=== PATIENT | female | born 1995 | race Caucasian/White ===

== ENCOUNTER 2017-12-07 14:28 | Emergency (ER) | payer MEDICAID ==
[~2017-12-07] VITALS: Ht 149.9 cm; Wt 44.5 kg
[~2017-12-07 14:28] MED LIST: AMOXICILLIN 50500 MG PO; FERROUSAL325 MG PO; MOTRIN 600600 MG/TAB PO; PRENATAL1 TA1 PO; TYLENOL/CODEINE1 ML PO
[2017-12-07 14:29] VITALS: BP 111/68; TEMP 97.1
[2017-12-07 15:22] LABS: BASO # 0.1 (0.0-0.2); BASO % 0.4 % (0.0-2.0); EOS % 0.3 % (0-4.0); GRAN # 9.1 (1.4-6.5); GRAN % 81.8 % (42.2-75.2); HEMATOCRIT 51.5 % (37.0-47.0); LYMPH # 1.6 (1.2-3.4); LYMPH % 14.3 % (20.0-51.0); MEAN CELL VOLUME 85 fl (80.0-100.0); MEAN CORPUSCULAR HEMOGLOBIN 30 pg (27.0-31.0); MEAN CORPUSCULAR HGB CONC 35 g/dl (33.0-37.0); MEAN PLATELET VOLUME 8.5 fl (7.4-10.4); MONO # 0.3 (0.1-0.6); MONO % 2.8 % (1.7-9.3); PLATELET COUNT 398 K/mm3 (130-400); RED BLOOD COUNT 6.03 M/mm3 (4.10-5.30); REDCELL DISTRIBUTION WIDTH-CV 12.1 % (11.5-14.5)
[2017-12-07 15:23] LABS: HEMOGLOBIN 18.2 g/dl (12.5-16.0)
[2017-12-07 15:36] LABS: ALANINE AMINOTRANSFERASE 33 U/L (9-52); ALBUMIN 5.9 gm/dL (3.5-5.0); ALKALINE PHOSPHATASE 85 U/L (50-136); ANION GAP 27 mmol/L (7-16); AST,SGOT 33 U/L (15-37); BILIRUBIN,TOTAL 0.9 mg/dL (0.0-1.0); BLOOD UREA NITROGEN 14 mg/dL (7-17); CARBON DIOXIDE 17 mmol/L (22-30); CHLORIDE 100 mmol/L (98-107); CREATININE, serum 1.22 mg/dL (0.52-1.25); GLUCOSE 102 mg/dL (74-106); LIPASE 193 U/L (23-300); POTASSIUM 4.4 mmol/L (3.4-5.0); SODIUM 144 mmol/L (137-145); TOTAL PROTEIN > 11.0 gm/dL (6.4-8.2)
[2017-12-07 15:39] LABS: C-REACTIVE PROTEIN < 0.5 mg/dL (0.0-0.9)
[2017-12-07] MEDS ORDERED: CIPRO 500MG TA500 MG PO (17:35)
[2017-12-07] MEDS ORDERED: PHENERGAN 25 TA25 MG PO (17:35)
[2017-12-07 17:48] VITALS: PULSE 64
== END 2017-12-07 17:49 | disposition home or self-care (01) ==
LOC: COL.ER 14:28
PROVIDERS: Emergency Medicine
DX: R10.84 Generalized abdominal pain (principal); R11.2 Nausea with vomiting, unspecified; R19.7 Diarrhea, unspecified; F17.210 Nicotine dependence, cigarettes, uncomplicated; Z98.890 Other specified postprocedural states
CPT/HCPCS: J2405; J2550; J7030

== ENCOUNTER 2019-10-17 20:16 | Inpatient (IN) | payer MEDICAID ==
[~2019-10-17] VITALS: Ht 147.3 cm; Wt 58.6 kg
[2019-10-17] VITALS (7 sets, daily range): BP systolic 117–149; BP diastolic 60–81; PULSE 80–106; TEMP 97.8–97.9
--- NOTE | 2019-10-17 20:00 | NUR ---
1956- Patient to LR2 with mother. Patient into room and undressed and into bed with help of RN. Patient is visibly breathing through contractions and uncomfortable at this time. 1956- EFM and TOCO on and tracing. SVE /-3 with posterior cervix and minimal brown discharge by Duke,NICOLETTE. Patient reports uncomfortable contractions starting 1 hour ago. Patient denies bleeding, spotting, or leaking of fluid. Patient states baby is moving "more than normal". Patient plans to . This NB will be given up for adoption after delivery to adoptive parents Bartolo + Belinda Aden ([phone]). Adoption paperwork and plans are already in place for after delivery. Visitor policy reviewed with patient and her mother in regards to labor vs. PP with adoptive parents by director council on aging, Sunil.
[~2019-10-17 20:16] MED LIST changes: +CIPRO 500MG TA500 MG PO; +PHENERGAN 25 TA25 MG PO
[2019-10-17] MEDS ORDERED: PRENATAL MVI (20:26)
[2019-10-17] MEDS ORDERED: NATURAL IRON65 MG (20:27)
--- NOTE | 2019-10-17 21:00 | NUR ---
ADOPTION NIGHT SHIFT SUPERVISOR: Zeenat Luis & Thomas Law .
[2019-10-18] VITALS (27 sets, daily range): BP systolic 69–131; BP diastolic 31–84; PULSE 78–116; TEMP 97.8–98.4
--- NOTE | 2019-10-18 | NUR ---
2100- SVE /-3 and unchanged by NICOLETTE Wall. 2144- Variable and early decelerations of FHR noted. FHR returned to baseline within 40 seconds without interventions. 0- SVE 3-/-3 by this RN. Patient very uncomfortable and wanting an epidural. RN explained plan of care to patient. Will update when he's out of surgery. 2239- at bedside. SVE /-3 by MD. JOHNSON to admit. wreath machine operatorSunil notified. 2299- IV started. LR infusing per protocol. Labs drawn and sent. 2315- ALTA Ramos contacted for epdidural placement. 5- Report given to NICOLETTE Bullock.
[2019-10-18 00:32] LABS: BASO % 0.2 % (0.0-2.0); EOS % 0.2 % (0-4.0); GRAN # 9.7 (1.4-6.5); GRAN % 77.1 % (42.2-75.2); HEMATOCRIT 37.4 % (37.0-47.0); HEMOGLOBIN 13.1 g/dl (12.5-16.0); LYMPH # 2.1 (1.2-3.4); LYMPH % 16.5 % (20.0-51.0); MEAN CELL VOLUME 88 fl (80.0-100.0); MEAN CORPUSCULAR HEMOGLOBIN 31 pg (27.0-31.0); MEAN CORPUSCULAR HGB CONC 35 g/dl (33.0-37.0); MEAN PLATELET VOLUME 10.9 fl (7.4-10.4); MONO # 0.6 (0.1-0.6); PLATELET COUNT 201 K/mm3 (130-400); RED BLOOD COUNT 4.23 M/mm3 (4.10-5.30); REDCELL DISTRIBUTION WIDTH-CV 13.7 % (11.5-14.5)
[2019-10-18 02:40] LABS: TRICYCLIC ANTIDEPRESS URINE NEGATIVE
--- NOTE | 2019-10-18 03:16 | NUR ---
benadryl 25 mg po for itching aafter epidural. restless unable to sleep. fob alseep on chair.wishes to hold baby after he is wrapped up. Plans to have adoptive parents make other choices re baby care
--- NOTE | 2019-10-18 05:08 | NUR ---
MALE - TO WARMER PER MOTHERS REQUEST, ADOPTIVE PARENTS TO VISIT SOON AND MEET BABY, 0600 CARLOS - ADOPTIVE PARENTS HERE AT BEDSIDE
[2019-10-18] MEDS ORDERED: IBU600 MG PO (05:37)
--- NOTE | 2019-10-18 05:50 | NUR ---
ANDI SCRUB BEGINS TO PUSH EFFECTIVELY. DR CARNEY NOTIFIED, [id number]
--- NOTE | 2019-10-18 10:19 | NUR ---
Social Workers, Nora responded to the OB for the patient due to a pre-planned adoption. The patient gave to a baby boy this morning at 5:08AM. Per [place] statute the official adoption paperwork has to be signed 12 hours after . SWs met with the patient at approximately 10:20AM, the patient was alone. SW asked patient if she was wanting to go through with the adoption and she stated yes. The patient has two other children at home a four and five year old. The FOB is the father of all three children and he does live in the home and is supportive. After visting with the patient, SWs met with Belinda and Bartolo Samaniego, the adoptive parents. Their supervisor cell operation is Chuck Woods to come to the hospital this evening to complete adoption paperwork. Chandu Dennison [phone]
--- NOTE | 2019-10-18 16:56 | NUR ---
horticultural farmworker spoke with Chuck Epperson and advised that he will need to present paperwork to confirm that patient wishes for her baby to be discharged to the care of the adoptive parents.
--- NOTE | 2019-10-18 17:25 | NUR ---
MONSERRAT met with the patient at approximately 1442 this day to sign the Authorization for Infant Release. At approximately 1714, Social Workers, Chuck Epperson, the patient's nurse met with the patient and the patient's mother. The patient was agreeable to the adoption and signed a Consent to Physical Care for Baby Britni and Authorization to Consent for Medical Care and Consent to Adopt that Chuck Epperson provided, he notarized the forms. There are no additional needs at this time
[2019-10-19 03:00] VITALS: BP 104/58; PULSE 70; TEMP 98
[2019-10-19 07:40] VITALS: BP 107/60; PULSE 77; TEMP 97.7
== END 2019-10-19 15:00 | disposition home or self-care (01) | DRG 807 ==
LOC: LDRO 20:16 → OB 22:49 → LDR 22:49 → OB 10-18 07:00
PROVIDERS: ADMIT Obstetrics & Gynecology
PROC: 10D07Z6 Extraction of Products of Conception, Vacuum, Via Natural or Artificial Opening (ICD-10-PCS; principal; 2019-10-18)
PROC: 0KQM0ZZ Repair Perineum Muscle, Open Approach (ICD-10-PCS; 2019-10-18)
DX: O34.211 Maternal care for low transverse scar from previous cesarean delivery (principal); Z37.0 Single live birth; O70.1 Second degree perineal laceration during delivery; O99.344 Other mental disorders complicating childbirth; F32.9 Major depressive disorder, single episode, unspecified; F41.9 Anxiety disorder, unspecified; O99.02 Anemia complicating childbirth; D64.9 Anemia, unspecified; O99.62 Diseases of the digestive system complicating childbirth; K21.9 Gastro-esophageal reflux disease without esophagitis; Z3A.38 38 weeks gestation of pregnancy; Z87.891 Personal history of nicotine dependence
CPT/HCPCS: J2590; J7120